=== PATIENT | female | born 1980 | race Caucasian/White ===

== ENCOUNTER 2020-07-19 16:07 | Outpatient (CLI) | payer OTHER, SELFPAY ==
--- NOTE | ~2020-07-19 | MM_ITS ---
EXAMINATION: MM screening [facility] BI w alise HISTORY: Screening mammogram TECHNIQUE: Craniocaudal and mediolateral oblique 3-D tomosynthesis images were obtained and synthetic 2-D images were generated. CAD analysis was submitted and interpreted. COMPARISON: 06/17/2019 BREAST PARENCHYMAL COMPOSITION: The breasts are almost entirely fatty. FINDINGS: There is no evidence of suspicious mass, calcification, or architectural distortion to sugg est malignancy in either breast. There has been no suspicious interval change. IMPRESSION: 1. No mammographic evidence of malignancy. 2. Recommend routine screening mammography in one year. BI-RADS Category 1: Negative Reviewed, dictated and finalized at location A. NALYST
== END 2020-07-19 16:08 | disposition home or self-care (01) ==
LOC: ANHIMG 16:10
PROVIDERS: PCP Obstetrics & Gynecology; Visit Provider Obstetrics & Gynecology
DX: Z12.31 Encounter for screening mammogram for malignant neoplasm of breast (principal)
CPT/HCPCS: 77063; 77067

== ENCOUNTER 2021-10-11 17:07 | Outpatient (CLI) | payer OTHER, SELFPAY ==
--- NOTE | ~2021-10-11 | MM_ITS ---
EXAMINATION: MM screening [facility] BI w alise HISTORY: Screening mammogram TECHNIQUE: Craniocaudal and mediolateral oblique 3-D tomosynthesis images were obtained and synthetic 2-D images were generated. CAD analysis was submitted and interpreted. COMPARISON: 07/19/2020, 06/17/2019 BREAST PARENCHYMAL COMPOSITION: There are scattered areas of fibroglandular density. FINDINGS: There is no evidence of suspicious mass, calcification, or architectural distortion to sugg est malignancy in either breast. There has been no suspicious interval change. IMPRESSION: 1. No mammographic evidence of malignancy. 2. Recommend routine screening mammography in one year. BI-RADS Category 1: Negative Reviewed, dictated and finalized at location A. MASTER
== END 2021-10-11 17:08 | disposition home or self-care (01) ==
LOC: ANHIMG 17:09
PROVIDERS: PCP Family Medicine; Visit Provider Obstetrics & Gynecology Gynecologic Oncology
DX: Z12.31 Encounter for screening mammogram for malignant neoplasm of breast (principal)
CPT/HCPCS: 77063; 77067

== ENCOUNTER 2022-10-22 15:44 | Outpatient (CLI) | payer OTHER, SELFPAY ==
--- NOTE | ~2022-10-22 | MM_ITS ---
EXAMINATION: MM screening [facility] BI w alise HISTORY: Screening mammogram TECHNIQUE: Craniocaudal and mediolateral oblique 3-D tomosynthesis images were obtained and synthetic 2-D images were generated. CAD analysis was submitted and interpreted. COMPARISON: October 11, 2021, July 19, 2020, June 17, 2019 bilateral screening mammogram exam inations BREAST PARENCHYMAL COMPOSITION: There are scattered areas of fibroglandular density. FINDINGS: There is no evidence of suspicious mass, calcification, or architectural distortion to sugg est malignancy in either breast. There has been no suspicious interval change. IMPRESSION: 1. No mammographic evidence of malignancy. 2. Recommend routine screening mammography in one year. BI-RADS Category 1: Negative Reviewed, dictated and finalized at location A. [facility] [place]
== END 2022-10-22 15:45 | disposition home or self-care (01) ==
PROVIDERS: PCP Family Medicine; Visit Provider Obstetrics & Gynecology Gynecologic Oncology
DX: Z12.31 Encounter for screening mammogram for malignant neoplasm of breast (principal)
CPT/HCPCS: 77063; 77067

== ENCOUNTER 2024-03-23 15:19 | Outpatient (CLI) | payer OTHER, SELFPAY ==
--- NOTE | ~2024-03-23 | MM_ITS ---
EXAMINATION: MM screening [facility] BI w alise HISTORY: Screening TECHNIQUE: Craniocaudal and mediolateral oblique 3-D tomosynthesis images were obtained and synthetic 2-D images were generated. CAD analysis was submitted and interpreted. COMPARISON: Comparison to multiple prior studies sequentially, with oldest reviewed study dated 06/01. BREAST PARENCHYMAL COMPOSITION: Not dense: There are scattered areas of fibroglandular density. FINDINGS: There is no evidence of suspicious mass, calcification, or architectural distortion to sugg est malignancy in either breast. There has been no suspicious interval change. IMPRESSION: 1. No mammographic evidence of malignancy. 2. Recommend routine screening mammography in one year. BI-RADS Category 1: Negative Reviewed, dictated and finalized at location B.
== END 2024-03-23 15:20 | disposition home or self-care (01) ==
PROVIDERS: Visit Provider Obstetrics & Gynecology Gynecologic Oncology
DX: Z12.31 Encounter for screening mammogram for malignant neoplasm of breast (principal)
CPT/HCPCS: 77063; 77067

== ENCOUNTER 2024-07-02 10:17 | Outpatient (CLI) | payer OTHER, SELFPAY ==
--- NOTE | 2024-07-02 10:27 | ECG_ITS ---
Test Date: 2024-07-02 10:39:21 Measurements Intervals [place] Rate: 58 P: 48 NM: 169 QRS: 59 QRSD: 92 T: 30 QT: 395 QTc: 389 Interpretive Statements SINUS BRADYCARDIA WITH SINUS ARRHYTHMIA BASELINE ARTIFACT- I, II, III BORDERLINE ECG No previous ECG available for comparison Electronically Signed On 07-02-2024 10:47:51 CDT by Antonio Brown D.O.
[2024-07-02 11:10] LABS: Hematocrit 40.4 % (37.0-47.0); Hemoglobin 13.8 g/dL (12.0-15.0)
== END 2024-07-02 10:18 | disposition home or self-care (01) ==
LOC: ANHSURGERY 10:21
PROVIDERS: Anesthesiology; PCP Nurse Practitioner; Visit Provider Surgery Plastic and Reconstructive Surgery
DX: L57.4 Cutis laxa senilis (principal); Z01.818 Encounter for other preprocedural examination
CPT/HCPCS: 36415; 85014; 85018; 93005

== ENCOUNTER 2024-07-06 01:15 | Day surgery (SDC) | payer OTHER, SELFPAY ==
--- NOTE | 2024-06-28 09:30 | SUR.PREOP ---
Report to the Outpatient Waiting Room, entrance under the green pavilion located off [facility], at time 0630 on date 07/06/24. Planned Procedure Time: 0830.? Time changes happen often and if your time is changed the preop area will call you the afternoon before. - You and your visitor will be asked to self-screen and do not enter if you have any COVID symptoms. Please call surgeon if you need to reschedule. - A mask is optional within the hospital at this time. Patients may have clear liquids (water, carbonated beverages, clear teas, apple juice) until 3 hours prior to surgery with a maximum of 20 ounces. - NO CLEAR LIQUIDS AFTER 0530 - No food from midnight until time of surgery and no smoking - Infants may have breast milk until 4 hours before surgery, formula 6 hours prior to surgery. - Children will be allowed to drink immediately following surgery.? If applicable, please bring a bottle or sippy cup to assist with drinking. Juice, water, soda, and popsicles are readily available.? For infants on formula, please bring formula the day of surgery.? Pacifiers are allowed. Take only the following medications with a SIP of water on the morning of surgery: N/A DO NOT STOP ANY OF YOUR OTHER PRESCRIPTION MEDICATIONS PRIOR TO SURGERY EXCEPT THE FOLLOWING Medications to discontinue per physician MULTIVITAMIN Date to take last dose 07/02/24 Please no make-up, nail guatemalan, hairspray, perfume, deodorant, or body powder the day of surgery.? No jewelry (including any body piercings) or valuables the day of surgery, leave them at home.? Please take a shower or bath the night before, or the morning of, surgery with an antibacterial soap.? Wear comfortable, loose fitting clothing.? Children are encouraged to wear pajamas. - Jewelry must be removed prior to entering the operating room.? Rings and piercings that are not removed may be cut off. - The hospital will not accept responsibility for valuables.? - Please leave all valuables, including medications, at home the day of surgery. If you are going home after surgery, a licensed septic pump truck driver must drive you home.? - NO public transportation without another adult if you receive anesthesia. - We recommend that an adult stay with you for 24 hours following discharge. - We also recommend that you do not drive, make important decision, drink alcoholic beverages, or take any drugs that were not prescribed by your health care provider for at least 24 hours after your discharge time. For Pediatric surgeries, we recommend two adults accompany the child home. Follow any additional instructions given to you from your surgeon. Telephone instructions given to MACRINA JONES and asked if any additional questions and then verbalized understanding. Patient advised to call surgeon office or pre surgery nurse liaison [phone] if any additional questions.
[2024-06-28 09:46] VITALS: BMI 26.0
[2024-07-06] VITALS (10 sets, daily range): BP systolic 100–119; BP diastolic 59–79; PULSE 64–105; RESP 12–20; TEMP 36.6–36.9; O2SAT 92–100
[2024-07-06 06:55] LABS: Urine Cotinine NEGATIVE
--- NOTE | 2024-07-06 07:01 | P.PNAN_ITS ---
Anes - Initial Pre Proc Eval Procedure: Operation Date: 07/06/24 08:30 Proposed Procedures p Abdominoplasty Anisha Luke with Liposuction - James Singh MD Date/Time: 07/06/24 07:01 Surgeon: James Singh MD Pre Op Diagnosis: skin laxity Patient Data Age: 44 Gender: F Height: 1.7 m Weight: 75.5 kg Allergies Allergy/AdvReac Type Severity Reaction Status Date / Time spironolactone Allergy Hives Verified 07/06/24 07:10 Home Medications Medication Instructions Recorded Confirmed Type cetirizine 10 mg tablet (Zyrtec) 10 mg PO DAILY 06/28/24 07/06/24 History [id number] 45 mg-folic 1 cap PO DAILY 06/28/24 07/06/24 History acid 800 mcg-vit K 120 mcg capsule (Bariatric Multivitamins) Laboratory Tests 07/06/24 06:40 Cotinine Negative Patient hx anesthesia problems: post op nausea/vomiting Family hx anesthesia problems: none Results Review: All pre-operative results and documents have been reviewed as part of the pre- operative evaluation. [facility] Past Medical History Medical History (Updated 07/05/24 @ 14:11 by Chemo Price DO) PONV (postoperative nausea and vomiting) Surgical History Surgical History (Updated 07/05/24 @ 14:11 by Chemo Price DO) History of sleeve gastrectomy Social History Social History Smoking status: Never smoker Alcohol intake: current Drinks per week: 4 Substance use: current Substance use type: marijuana Other substance usage details: ONCE A MONTH Living arrangements: with family Spiritual care concerns: No Anes - Eval Final PreProcedure Day of Procedure 07/06/24 07:01 Patient weight: overweight Heart: regular rate and rhythm Lungs: clear to auscultation Airway: Mallampati scale class II Neurological: alert and oriented Last oral intake: >/= 8 hours ASA classification: II Emergent: no Anesthetic plan: proceed Anesthesia type and monitoring: general ETT and standard monitoring Results Review: All pre-operative results and documents have been reviewed as part of the pre- operative evaluation. Informed Consent: The patient's anesthetic plan and its attendant risks and benefits were discussed with the patient/family/POA. Questions were solicited and answers provided to the satisfaction of the patient/family/POA.
--- NOTE | 2024-07-06 07:09 | WPDHPUPDATE1 ---
History and Physical Update Update Date/Time: 07/06/24 07:09 History and Physical has been reviewed, including an updated exam of the patient. There are NO changes in the patient's condition. Risks, benefits, and alternatives have been discussed and questions answered. Patient agrees to proceed with procedure.
--- NOTE | 2024-07-06 07:09 | W.PM.PROC2 ---
Procedure Note - Detailed Date of Procedure 07/06/24 Pre-op Diagnosis skin laxity Post-op Diagnosis Same Procedure Performed Anisha branham abdominoplasty with suction lipectomy Surgeon James Singh MD Anesthesia General Findings Tissue removed: 2,300 grams Lipoaspirate: 1,738 cc Description of Procedure They are here today for the above procedures. Previously and again today the risks, benefits, alternatives were discussed in extensive detail. I wanted them to be very realistic about the risks involved as well as expectations. We discussed aftercare and what to monitor for. I was very upfront about the risks of wound breakdown leading to loss of skin, open wounds, and need for additional procedures with permanent abdominal deformity. We discussed DVT/PE risks and management. She declines posterior body lift. Made sure answered all of their questions to their satisfaction today and consent was obtained. They were marked in the preoperative holding area with their verification. The patient was taken to the operating room. Anesthesia was provided by anesthesiology. A Pugh catheter was started. Posterior Placed prone on the operating room table with care taken to protect from injury. Prepped and draped in a standard sterile fashion. A surgical time-out was taken. Stab incisions were made and tumescent solution was infiltrated. Once adequate time was allowed for hemostasis a 5mm basket and 4mm Sintia cannula were utilized to complete suction lipectomy based on S.A.F.E. technique in multiple planes and passes. Suction lipectomy continued to result based on pre-operative planning, intra-operative observation, and rolling pinch test which were in full agreement. Abdomen Patient was then placed supine with care taken to protect from injury. I placed the patient in a flexed position to verify the upper and lower markings would reach. I then placed supine. A thorough abdominal examination was completed. Stab incisions were made and tumescent solution infiltrated. Stab incisions were made and tumescent solution was infiltrated. Once adequate time was allowed for hemostasis a 5mm basket and 4mm Sintia cannula were utilized to complete suction lipectomy based on S.A.F.E. technique in multiple planes and passes. Suction lipectomy continued to result based on pre-operative planning, intra-operative observation, and rolling pinch test which were in full agreement. A 10 blade was used to make the upper incision as well as the vertical. I continued dissection down to the level of fascia. Elevated just what was necessary for repair of the diastasis. I then again flexed the bed to verify the upper skin flap would reach the lower markings without tension. Once verified I placed her supine once again and a 10 blade used to make the lower incision. I elevated up to level the umbilicus and left the umbilicus intact on a well-vascularized stalk. The intervening tissue was removed. A 2 mm blunt cannula with 0.5% bupivacaine was injected deep to the fascia bilaterally. I plicated the diastasis recti using 0 PDO Stratafix barbed suture. This was in 2 separate layers using 2 separate sutures as well. After the patient was flexed (below) plicated the fascia with 0 PDO Stratafix in two separate layers. The patient was flexed and starting from superior to inferior began plication using 2-0 Vicryl to obliterate all space in a standard progressive tension fashion. At the umbilicus I marked out the location of the skin and inset this with 3-0 Monocryl and 4-0 Vicryl. I continued the remainder of the plication using 2-0 Vicryl until I reached my lower planned scar line. I trimmed any excess skin of the upper flap making sure this was a tension-free closure. 15 Ross drain was placed. I then approximated using a 3 point suture with 2-0 Vicryl followed by 2-0 PDO Stratafix, 3-0 Stratafix ,running subcuticular 4-0 Monocryl, and tissue glue. Fluffs and an abdominal binder were placed. The patient was transferred to the bed in a flexed position. [place] and taken to the PACU without difficulty. All instrument and sponge counts were correct at the end of the case. Estimated Blood Loss 100 Drains Yes (15 Ross) Packing No Pathology None sent Complications No immediate complications Condition Stable Disposition PACU
[2024-07-06 07:14] LABS: BEDSIDEPREGUCG Negative (Negative)
[2024-07-06] MEDS: SCOPOLAMINE 1 MG PATCH 1 PATCH TRANSDERM (07:15)
[2024-07-06] MEDS: LACTATED RINGERS 1,000 ML 30 ML IV CONT ×3 (07:20→14:30)
[2024-07-06] MEDS: ceFAZolin 2 GM/D5W 50 ML 2 GM/50 ML BAG IVPB (08:49)
[2024-07-06] MEDS: LACTATED RINGERS IRRIG 1,000 ML, LIDOCAINE HCL 1% LOCAL INJ 50 ML, EPINEPHrine HCL INJ ... INFILTRATE (08:49)
[2024-07-06] MEDS: BUPIVACAINE/EPINEPHRINE 0.5% 50 ML VIAL 60 ML INFILTRATE (08:49)
[2024-07-06] MEDS: TRANEXAMIC ACID 1,000MG/ISO100 1,000 MG/100 ML BAG 200 MG IVPB (09:04)
[2024-07-06] MEDS: ceFAZolin SODIUM 1 GM VIAL IV PUSH (12:38)
[2024-07-06] MEDS: fentaNYL CITRATE INJ (*CRX) 100 MCG/2 ML VIAL 25 MCG IV PUSH ×4 (14:23→14:40)
[2024-07-06] MEDS: oxyCODONE HCL (*CRX) 5 MG TAB IR PO (15:05)
== END 2024-07-06 15:55 | disposition home or self-care (01) ==
PROVIDERS: PCP Nurse Practitioner; Visit Provider Surgery Plastic and Reconstructive Surgery
PROC: (CPT 15830; principal; 2024-07-06 08:30)
DX: Z41.1 Encounter for cosmetic surgery (principal); L57.4 Cutis laxa senilis; F12.90 Cannabis use, unspecified, uncomplicated; Z98.890 Other specified postprocedural states; Z98.84 Bariatric surgery status
CPT/HCPCS: 15830; 15847; 15877; 80307; A9270; J0171; J0690; J1100; J1171; J2003; J2250; J2405; J2704; J3010; J7120

== ENCOUNTER 2025-05-13 09:26 | Outpatient (CLI) | payer OTHER, SELFPAY ==
--- OUTSIDE RECORDS SUMMARY | 2024-02-14 16:30 | XMS_ITS ---
Author Organization [facility] [place] ([address]) Address [address] [place] [address] Care Team Providers Care Proof Machine Operator Name Role Phone Rashid Sierra MD Primary Care Provider Unava Cordelia Perkins Unavailable [phone] [facility], Provider Unavailable Unavailab le Allergies Allergen (clinical drug ingredient) Drug/Non Drug Allergy documented on EMR Reaction Allergy Type Onset Date Status spironolactone Spironolactone hives Drug Allergy Active REASON FOR VISIT [facility] To [facility] Conversion Encounter Medications Medication SIG (Take, Route, Frequency, Duration) Notes Start Date End Date Status Nasacort Allergy 24HR 55 MCG/ACT 2 spray(s) intranasally once a day Active ELESTAT 0.05% 1 GTT IN EACH AFFECTED EYE 2 TIMES A DAY *Please review for potential replacement for e-prescription and drug interaction check* Active ZANTAC 150 150 MG 1 TAB(S) ORALLY 2 TIMES A DAY *Please review for potential replacement for e-prescription and drug interaction check* Not-Taking ZyrTEC Allergy 10 MG 1 tab(s) orally BID Active Encounters Encounter Location [place] [id number] 02/14/2024 Provider [facility] Allergic rhinitis due to pollen J30.1 ; Other chronic allergic conjunctivitis H10.45 and Pruritus, unspecified L29.9 Assessments Encounter Date Diagnosis (ICD Code) Assessment Notes Treatment Notes Treatment Clinical Notes Section Notes 02/14/2024 Allergic rhinitis due to pollen (ICD-10 - J30.1) 02/14/2024 Other chronic allergic conjunctivitis (ICD-10 - H10.45) 02/14/2024 Pruritus, unspecified (ICD-10 - L29.9) Plan Of Treatment Medication Medication Name Sig Start Date Stop Date Notes Nasacort Allergy 24HR 55 MCG/ACT 2 spray(s) intranasally once a day ELESTAT 0.05% 1 GTT IN EACH AFFECT ED EYE 2 TIMES A DAY *Please review for potential replacement for e-prescription and drug interaction check* ZyrTEC Allergy 10 MG 1 tab(s) orally BID Progress Notes * Josie JONES RDOB: [birth year] (44 yo F)Acc No.[id number]:02/14/2024 Patient: Josie BRAVO Provider: Marilee Acosta :1980 A ge:43 Y S ex:Female Date:02/14/2024 Address:[address] [place] [address] [id number] Pcp:Rashid Sierra MD Subjective: * Chief Complaints: * 1 . [facility] To Med[facility]pan Conversion Encounter. * Medical History: * Medications: N ot-Taking/PRN ZANTAC 150 150 MG TABLET 1 TAB(S) ORALLY 2 TIMES A DAY , Notes to Pharmacist: *Please review for potential replacement for e-prescription and drug interaction check* * Allergies: S pironolactone: hives. Objective: * Vitals: Assessment: * Assessment: 1. A llergic rhinitis due to pollen - J30.1 (Primary) 2 . O ther chronic allergic conjunctivitis - H10.45 3 . P ruritus, unspecified - L29.9 ? Plan: * Treatment: 2. O ther chronic allergic conjunctivitis Continue ELESTAT SOLUTION, 0.05%, 1 GTT, IN EACH AFFECTED EYE, 2 TIMES A DAY, Notes to Pharmacist: *Please review for potential replacement for e-prescription and drug interaction check*. 3. P ruritus, unspecified Hold ZyrTEC Allergy Tablet, 10 MG, 1 tab(s), orally, BID. * Billing Information: * Visit Code: * Procedure Codes: * Electronic signature of [facility] on 05/13/2025 at 09:56 AM CDT Sign off status: Pending * Provider: Marilee brewster Migration Date: 0 02/14/2024 Generated for Flakita goldsmith/Jose M/Nelly on: 0 05/13/2025 09:56 AM CDT
--- NOTE | ~2025-05-13 | MM_ITS ---
EXAMINATION: MM screening dontrell BI w alise HISTORY: Screening TECHNIQUE: Craniocaudal and mediolateral oblique 3-D tomosynthesis images were obtained and synthetic 2-D images were generated. CAD analysis was submitted and interpreted. COMPARISON: Comparison to multiple prior studies sequentially, with oldest reviewed study dated , 06/17/2019 BREAST PARENCHYMAL COMPOSITION: There are scattered areas of fibroglandular density. FINDINGS: There is no evidence of suspicious mass, calcification, or architectural distortion to suggest malignancy in either breast. IMPRESSION: 1. No mammographic evidence of malignancy. 2. Recommend routine screening mammography in one year. BI-RADS Category 1: Negative Reviewed, dictated and finalized at location B.
--- OUTSIDE RECORDS SUMMARY | 2025-05-13 09:55 | XMS_ITS | Encounter Summary ---
Author Organization [facility] Health Address [address] [facility] [place] [address] Care Team Providers Care Correctional Nurse Name Role Phone Unavailable Primary Care Provider Unavailabl e Encounter Details Date Type Department Care Team (Late st Contact Info) Description 06/07/2024 Lab Requisition [facility] - DermPath Lab [address] [place] [id number] Rocio Martínez PA-C [address] [place] [phone] Neoplasm of uncertain behavior of skin Social History Tobacco Use Types Packs/Day Years Used Date Smoking Tobacco: Never Assessed Comments Unknown Sex and Gender Information Value Date Recorded Sex Assigned at Not on file Legal Sex Female 3:47 PM CDT Gender Identity Not on file Sexual Orientation Not on file documented as of this encounter Plan of Treatment Not on file documented as of this encounter Procedures Procedure Name Priority Date/Time Associated Diagnosis Comments DERMATOPATHOLOGY Routine 06/07/2024 12:0 0 AM CDT Neoplasm of uncertain behavior of skin documented in this encounter Results * DERMATOPATHOLOGY (06/07/2024 12:00 AM CDT) Case Report Dermatopathology Report Case: [id number] Authorizing Provider: Rocio Martínez PA-C Collected: 06/07/2024 12:00 AM Ordering Location: [facility] - Received: 06/08/2024 12:48 PM DermPath Lab Pathologist: Hawa Rodas MD Specimen: Skin, right breast 4:46 PM CDT DERMATOPATHOLOGY LABORATORY Final Diagnosis Specimen A. SKIN, right breast: COMPOUND MELANOCYTIC NEVUS, IRRITATED (D22.5) POST-INFLAMMATORY PIGMENT ALTERATION (L81.9) PRESENT AT MARGIN (see microscopic description and comment) 4:46 PM CDT DERMATOPATHOLOGY LABORATORY at 1646 CDT Clinical History Atypical nevus 4:46 PM CDT DERMATOPATHOLOGY LABORATORY Gross Description Specimen A: Received is one formalin filled container labeled with the patient's name and designated right breast. The specimen consists of a shave biopsy measuring 5x4x1 mm. Jar 0. 4:46 PM CDT DERMATOPATHOLOGY LABORATORY Microscopic Description Specimen A. SKIN, right breast: There is melanin pigment in the stratum corneum. There are nests of melanocytes at the dermal-epidermal junction and within the dermis as well as abundant melanin within melanophages around the superficial vascular plexus. This lesion is present at the margin of the specimen. COMMENT: The histopathologic findings of the portion of the lesion sampled are reassuring. However, as this lesion is present at the margins of the specimen, clinicopathological correlation is recommended as to the nature of any remaining lesion. 4:46 PM CDT DERMATOPATHOLOGY LABORATORY Disclaimer An external and internal positive and negative controls are appropriate for the histochemical, immunohistochemical and immunofluorescence stain(s) in this case (if any), except where stated explicitly. The performance characteristics of the stain(s) cited in this report were developed and its performance characteristic determined by the Dermatopathology Laboratory at [facility], directed by Dr. Fela Ivory. These tests need not be, and therefore are not, approved by the [place] Food and Drug Administration. The tests are used for clinical purposes. Billing Codes Specimen Charges Stain Charges 61416 1 4:46 PM CDT DERMATOPATHOLOGY LABORATORY Embedded Images 4:46 PM CDT DERMATOPATHOLOGY LABORATORY Pathology/Cytolog y TISSUE SPECIMEN FROM SKIN / Unknown 06/07/2024 06/08/2024 12:48 PM CDT Rocio Martínez PA-C LAB - PATHOLOGY/CYTOLOGY ORDE RABLES Final Result DERMATOPATHOLOGY LABORATORY [facility] - Department of Dermatology [facility] [address] [place] [address], [address] [phone] documented in this encounter Visit Diagnoses Diagnosis Neoplasm of uncertain behavior of skin documented in this encounter
--- OUTSIDE RECORDS SUMMARY | 2025-05-13 09:55 | XMS_ITS | Encounter Summary ---
Author Organization [facility] Health Address [address] [facility] [place] [address] Care Team Providers Care Gamma Ray Operator Name Role Phone Unavailable Primary Care Provider Sarahabl e Encounter Details Date Type Department Care Team (Late st Contact Info) Description 06/08/[address] [facility] DermPath Lab [address] [place] [address] Thompson Palmer MD [address] [address] Social History Tobacco Use Types Packs/Day Years [...] Priority Date/Time Associated Diagnosis Comments DERMATOPATHOLOGY Routine 06/06/2021 12:0 0 AM CDT documented in this encounter Results * DERMATOPATHOLOGY (06/06/2021 12:00 AM CDT) Case Report Dermatopathology Report Case: [id number] Authorizing Provider: Thompson Palmer MD Collected: 06/06/2021 12:00 AM Ordering Location: [facility] DermPath Lab Received: 06/08/2021 08:07 AM Pathologist: Yuridia Ojeda MD Specimens: A) - Skin, left lateral scalp B) - Skin, left posterior scalp 1:31 PM CDT DERMATOPATHOLOGY LABORATORY Final Diagnosis Specimen A. SKIN, left lateral scalp: TRICHILEMMAL (PILAR) CYST WITH CALCIFICATION (L72.12) PRESENT AT MARGIN Specimen B. SKIN, left posterior scalp: TRICHILEMMAL (PILAR) CYST WITH CALCIFICATION (L72.12) PRESENT AT MARGIN 1:31 PM T DERMATOPATHOLOGY LABORATORY at 1331 CDT Clinical History A: Pilar cyst. Path# [id number]. Check margins. B: Pilar cyst. Path# [id number]. Check margins. 1:31 PM CDT DERMATOPATHOLOGY LABORATORY Gross Description Specimen A: Received is one formalin filled container labeled with the patient's name and designated left lateral scalp. The specimen consists of a [id number] bisected, 2j7r4rs. Jar 0. Specimen B: Received is one formalin filled container labeled with the patient's name and designated left posterior scalp. The specimen consists of a [id number], bisected. The margin is inked green. Jar 0. 1:31 PM CDT DERMATOPATHOLOGY LABORATORY Microscopic Description Specimen A. SKIN, left lateral scalp: Sections show a cyst that is lined by stratified squamous epithelium that shows trichilemmal keratinization (no granular layer). There is homogeneous pink keratin and aggregates of homogenous amorphous basophilic material consistent with calcium within the cyst. This lesion is present at the margin of the specimen. Specimen B. SKIN, left posterior scalp: Sections show a cyst that is lined by stratified squamous epithelium that shows trichilemmal keratinization (no granular layer). There is homogeneous pink keratin and aggregates of homogenous amorphous basophilic material consistent with calcium within the cyst. This lesion is present at the margin of the specimen. 1:31 PM CDT DERMATOPATHOLOGY LABORATORY Disclaimer An external and internal positive and negative controls are appropriate for the histochemical, immunohistochemical and immunofluorescence stain(s) in this case (if any), except where stated explicitly. The performance characteristics of the stain(s) cited in this report were developed and its performance characteristic determined by the Dermatopathology Laboratory at [facility], directed by Dr. Fela Ivory. These tests need not be, and therefore are not, approved by the [place] Food and Drug Administration. The tests are used for clinical purposes. Billing Codes Specimen Charges Stain Charges 67332 75680 1 1 1:31 PM CDT DERMATOPATHOLOGY LABORATORY Embedded Images 1:31 PM CDT DERMATOPATHOLOGY LABORATORY Pathology/Cytology TISSUE SPECIMEN FROM SKIN / Unknown 06/06/2021 06/08/2021 8:07 AM CDT Miscellaneous samples (specimen) TISSUE SPECIMEN FROM SKIN / Unknown 06/06/2021 06/08/2021 8:07 AM CDT us Thompson Palmer MD LAB - PATHOLOGY/CYTOLOGY ORDER CRYSTAL Final Result DERMATOPATHOLOGY LABORATORY [facility] - Department of Dermatology [facility] Medicine [address] [place] [address], [address] [phone] documented in this encounter Visit Diagnoses Not on filedocumented in this encounter
--- OUTSIDE RECORDS SUMMARY | 2025-05-13 09:55 | XMS_ITS | Clinical Summary ---
Author Organization [facility] Address [address] [place] [address] Care Team Providers Care Graining Press Operator Name Role Phone Unavailable Primary Care Provider Unavailabl e Source Comments [facility],non-owned Affiliates and Associated Physician Practices is amultiple site organization consisting of ambulatory clinics and hospital sitesin [place], [place], [place] and [place]. This disclosure is being madepursuant to the Care Everywhere program and may not contain all information available regarding this patient. Last updated 18.[facility] Social History Tobacco Use Types Packs/Day Years Used Date Smoking Tobacco: Never Assessed Comments Unknown Sex and Gender Information Value Date Recorded Sex Assigned at Not on file Legal Sex Female 3:47 PM CDT Gender Identity Not on file Sexual Orientation Not on file Plan of Treatment Health Maintenance Due Date Last Done Comments COLOGUARD (AGES 45-75) - COL ON CA SCREENING 1979 COLON MONITORING 1979 COLONOSCOPY - COLON CA SCREENING 1979 CT COLONOGRAPHY - COLON CA SCREENING 1979 Colorectal Cancer Screening 1979 FIT - COLON CA SCREENING 1979 FLEX SIG - COLON CA SCREENING 1979 LIPID TESTING 1979 MAMMOGRAM 1979 HIV SCREENING 1994 HEPATITIS C SCREENING 06/10/1997 DTAP/TDAP/TD VACCINES (1 - Tdap) 1998 HEPATITIS B VACCINE (1 of 3 - 19+ 3-dose series) 1998 PAP SMEAR 2000 HPV VACCINE (1 - 3-dose SCDM series) 2006 COVID-19 VACCINE (2023-2 5 season) 2024 DEPRESSION SCREENING 09/01/2024 INFLUENZA VACCINE (#1) 2025 ZOSTER VACCINE (1 of 2) 2029 HIB VACCINE Aged Out No longer eligi ble based on patient's age to complete this topic MENINGOCOCCAL (Group B) VACC INE SHARED DECISION-MAKING Aged Out No longer eligibl e based on patient's age to complete this topic MENINGOCOCCAL GROUPS A/C/Y/W VACCINE Aged Out No longer eligible b ased on patient's age to complete this topic PNEUMOCOCCAL VACCINE Aged Out No long er eligible based on patient's age to complete this topic Insurance [employer] Member Subscriber Plan / Payer ( fective 2021-Present) Name:Rocio Eubanks Member ID:[id number] Relation to Subscriber:Self Name:Rocio Eubanks Subscriber ID:[id number] Payer ID:Not on file Type:O Address: [place] [id number] [employer] Member Subscriber Plan / Payer ( fective 2021-Present) Name:Rocio Eubanks Member ID:[id number] Relation to Subscriber:Self Name:Rocio Eubanks Subscriber ID:[id number] Payer ID:Not on file Type:HMO Address: [place] [phone]
--- OUTSIDE RECORDS SUMMARY | 2025-05-13 09:55 | XMS_ITS | Encounter Summary ---
Author Organization [facility] Health Address [address] [facility] [place] [address] Care Team Providers Care Administrative Representative Name Role Phone Unavailable Primary Care Provider Unavailabl e Encounter Details Date Type Department Care Team (Late st Contact Info) Description 12/21/2021 Lab Requisition [facility] DermPath Lab [address] [facility] [place] [address] Thompson Palmer MD [address] [place] [place] [address] Social History Tobacco Use Types Packs/Day [...] Priority Date/Time Associated Diagnosis Comments DERMATOPATHOLOGY Routine 12/21/2021 12:0 0 AM CDT documented in this encounter Results * DERMATOPATHOLOGY (12/21/2021 12:00 AM CDT) Case Report Dermatopathology Report Case: [id number] Authorizing Provider: Thompson Palmer MD Collected: 12/21/2021 12:00 AM Ordering Location: [facility] DermPath Lab Received: 12/21/2021 02:58 PM Pathologist: Susan Rodas MD Specimen: Skin, right upper back 3:57 PM CDT DERMATOPATHOLOGY LABORATORY Final Diagnosis Specimen A. SKIN, right upper back: LICHEN PLANUS-LIKE KERATOSIS (BENIGN LICHENOID KERATOSIS) (L82.1) (see microscopic description) 2 3:57 PM CDT DERMATOPATHOLOGY LABORATORY at 1557 CDT Clinical History Irritated Nevus vs. Other. Path# [id number] 2 3:57 PM CDT DERMATOPATHOLOGY LABORATORY Gross Description Specimen A: Received is one formalin filled container labeled with the patient's name and designated right upper back. The specimen consists of a shave biopsy measuring 3m4g2rl. Jar 0. 2 3:57 PM CDT DERMATOPATHOLOGY LABORATORY Microscopic Description Specimen A. SKIN, right upper back: The epidermis is mildly acanthotic. There is a lichenoid infiltrate with vacuolar changes of basilar keratinocytes and scattered necrotic keratinocytes. Additional deeper sections were obtained and reviewed. 2 3:57 PM CDT DERMATOPATHOLOGY LABORATORY Disclaimer An external and internal positive and negative controls are appropriate for the histochemical, immunohistochemical and immunofluorescence stain(s) in this case (if any), except where stated explicitly. The performance characteristics of the stain(s) cited in this report were developed and its performance characteristic determined by the Dermatopathology Laboratory at [facility], directed by Dr. Fela Ivory. These tests need not be, and therefore are not, approved by the [place] Food and Drug Administration. The tests are used for clinical purposes. Billing Codes Specimen Charges Stain Charges 64476 1 2 3:57 PM CDT DERMATOPATHOLOGY LABORATORY Embedded Images 2 3:57 PM CDT DERMATOPATHOLOGY LABORATORY Pathology/Cytolog y TISSUE SPECIMEN FROM SKIN / Unknown 12/21/2021 12/21/2021 2:58 PM CDT us Thompson Palmer MD LAB - PATHOLOGY/CYTOLOGY ORDER CRYSTAL Final Result DERMATOPATHOLOGY LABORATORY [facility] - Department of Dermatology [address], [address] [place] [address], [facility] [phone] documented in this encounter Visit Diagnoses Not on filedocumented in this encounter
--- OUTSIDE RECORDS SUMMARY | 2025-05-13 09:55 | XMS_ITS | Encounter Summary ---
Author Organization [facility] Health Address [address] [place] [address] Care Team Providers Care Administrative Manager Name Role Phone Unavailable Primary Care Provider Unavailabl e Encounter Details Date Type Department Care Team (Late st Contact Info) Description 12/05/2022 Lab Requisition [facility] DermPath Lab [address] [facility], [place] [address] Thompson Palmer MD [address] [facility] [address] Social History Tobacco Use Types Packs/Day [...] Priority Date/Time Associated Diagnosis Comments DERMATOPATHOLOGY Routine 12/04/2022 12:0 0 AM CDT documented in this encounter Results * DERMATOPATHOLOGY (12/04/2022 12:00 AM CDT) Case Report Dermatopathology Report Case: [id number] Authorizing Provider: Thompson Palmer MD Collected: 12/04/2022 12:00 AM Ordering Location: [facility] DermPath Lab Received: 12/05/2022 03:39 PM Pathologist: Yuridia Ojeda MD Specimen: Skin, left anterior scalp 3 1:38 PM CDT DERMATOPATHOLOGY LABORATORY Final Diagnosis Specimen A. SKIN, left anterior scalp: TRICHILEMMAL (PILAR) CYST WITH CALCIFICATION (L72.12) PRESENT AT MARGIN 3 1:38 PM CDT DERMATOPATHOLOGY LABORATORY at 1338 CDT Clinical History Pilar cyst Path#[id number] Check margins 1:38 PM CDT DERMATOPATHOLOGY LABORATORY Gross Description Specimen A: Received is one formalin filled container labeled with the patient's name and designated left anterior scalp. The specimen consists of a 22g15i02 mm piece of skin. The margin is inked green. The specimen is bisected lengthwise and submitted in 1 cassette. Jar 0+. 1:38 PM CDT DERMATOPATHOLOGY LABORATORY Microscopic Description Specimen A. SKIN, left anterior scalp: Sections show a cyst that is lined by stratified squamous epithelium that shows trichilemmal keratinization (no granular layer). There is homogeneous pink keratin and aggregates of homogenous amorphous basophilic material consistent with calcium within the cyst. This lesion is present at the margin of the specimen. 3 1:38 PM CDT DERMATOPATHOLOGY LABORATORY Disclaimer An external and internal positive and negative controls are appropriate for the histochemical, immunohistochemical and immunofluorescence stain(s) in this case (if any), except where stated explicitly. The performance characteristics of the stain(s) cited in this report were developed and its performance characteristic determined by the Dermatopathology Laboratory at [facility], directed by Dr. Fela Ivory. These tests need not be, and therefore are not, approved by the [place] Food and Drug Administration. The tests are used for clinical purposes. Billing Codes Specimen Charges Stain Charges 74082 1 3 1:38 PM CDT DERMATOPATHOLOGY LABORATORY Embedded Images 3 1:38 PM CDT DERMATOPATHOLOGY LABORATORY Pathology/Cytolog y TISSUE SPECIMEN FROM SKIN / Unknown 12/04/2022 12/05/2022 3:39 PM CDT us Thompson Palmer MD LAB - PATHOLOGY/CYTOLOGY ORDER CRYSTAL Final Result DERMATOPATHOLOGY LABORATORY [facility] - Department of Dermatology [address] Floor [place], [place] [address] [place] [address] documented in this encounter Visit Diagnoses Not on filedocumented in this encounter
--- OUTSIDE RECORDS SUMMARY | 2025-05-13 09:55 | XMS_ITS | Patient Health Record ---
Author Organization [facility] [employer] [facility] ([address]) Address [address] [place] [address] Care Team Providers Care Machine Operators Name Role Phone Rashid Sierra MD Primary Care Provider Unava Cordelia Perkins Unavailable [phone] Allergies Allergen (clinical drug ingredient) Drug/Non Drug Allergy documented on EMR Reaction Allergy Type Onset Date Status spironolactone Spironolactone hives Drug Allergy Active Reason For Referral No Information Medications Medication SIG (Take, Route, Frequency, Duration) Notes Start Date End Date Status ZYRTEC 10 mg 1 tab(s) orally BID Active Nasacort Allergy 24HR 55 MCG/ACT 2 spray(s) intranasally once a day Active ELESTAT 0.05% 1 GTT IN EACH AFFECTED EYE 2 TIMES A DAY *Please review for potential replacement for e-prescription and drug interaction check* Active NASACORT AQ 55 mcg/inh 2 spray(s) intranasally once a day Active ZANTAC 150 150 MG 1 TAB(S) ORALLY 2 TIMES A DAY *Please review for potential replacement for e-prescription and drug interaction check* Not-Taking ZyrTEC Allergy 10 MG 1 tab(s) orally BID Active Immunizations Vaccine Route Administration Date Status Comme nts Influenza Unknown 06/01/2010 Administered Social History Tobacco Use: Social History Observation Description Date Details (start date - stop date) Former Smoker NA - NA Smoking Smart Form: Question Answer Notes Are you a: former smoker How long it has been since you last smoked? > 10 years Problems Problem Type SNOMED Code ICD Code Onset Dates Problem Status W/U Status Risk Notes Problem Chronic allergic conjunctivitis (45819924) Chronic allergic conjunctivitis NOS (372.14) Active confirmed Problem Allergic rhinitis due to allergen (25127938) Allergic rhinitis due to allergen (477.8) Active confirmed Problem Pruritic disorders (474475327) Pruritus of skin NOS (698.9) Active confirmed Problem Pruritus (384405202) Pruritus, unspecified (L29.9) Active confirmed Problem Allergic rhinitis caused by pollen (disorder) (58515596) Allergic rhinitis due to pollen (J30.1) Active confirmed Problem Allergic rhinitis caused by animal hair and dander (242681986615312) Allergic rhinitis due to animal (cat) (dog) hair and dander (J30.81) Active confirmed Problem Allergic rhinitis (93413137) Other allergic rhinitis (J30.89) Active confirmed Problem Chronic allergic conjunctivitis (42562262) Other chronic allergic conjunctivitis (H10.45) Active confirmed Plan Of Treatment No Information Insurance Providers Payer Name Payer Address Payer Phone Subscriber Number Group Number Insured Name Patient Relationship to Insured Coverage Start Date Coverage End Date [facility] [address] [place] [address] [id number] Josie Eubanks Self - patient is the insured
--- OUTSIDE RECORDS SUMMARY | 2025-05-13 09:56 | XMS_ITS | Patient Health Record ---
Author Organization [facility] Address [address] [place], [place] [id number] Care Team Providers Care Seismic Prospecting Observer Helper Name Role Phone DENISHA Colin Unavailable [phone] Rashid Sierra Unavailable Unavailable Reason For Referral No Information Medications Medication SIG (Take, Route, Frequency, Duration) Notes Start Date End Date Status triamcinolone acetonide 0.055 MG/ACTUAT Metered Dose Nasal [place] [Nasacort] triamcinolone acetonide 0.055 MG/ACTUAT Metered Dose Nasal [place] [Nasacort]Original Medicationtriamcinolone acetonide 0.055 MG/ACTUAT Metered Dose Nasal [place] [Nasacort] *Reorder from OnDeck for eRx and Inter 4 Active cetirizine hydrochloride 10 MG Oral Capsule [Zyrtec] ORAL cetirizine hydrochloride 10 MG Oral Capsule [Zyrtec]Original Medicationcetirizine hydrochloride 10 MG Oral Capsule [Zyrtec] *Reorder from OnDeck for eRx and Interaction Alerts* 4 Active Plan Of Treatment No Information Insurance Providers Payer Name Payer Address Payer Phone Subscriber Number Group Number Insured Name Patient Relationship to Insured Coverage Start Date [facility]age End Date [facility] [address] [place], [place] [id number] MACRINA JONES Self - patient is the insured
--- OUTSIDE RECORDS SUMMARY | 2025-05-13 09:56 | XMS_ITS | Clinical Summary ---
Author Organization [facility] Address [address] [place] [address] Care Team Providers Care Segment Producer Name Role Phone Lorrie López MD Primary Care Provider [phone] Allergies Active Allergy Reactions Criticality Noted Date Comments Nsaids (Non-Steroidal Anti-Inflammatory Drug) Other (See comments) Low 06/25/2023 S/p bariatric surgery Spironolactone Hives,Itching,Rash Medium 05/17/2021 Medications cetirizine (ZyrTEC) 10 mg capsuleIndicati ons:Allergic Rhinitis Take 10 mg by mouth every morning 5 Active multivitamin-mi i-uiru-FI-vit K (Bariatric Multivitamins) 45 mg iron- 800 mcg-120 mcg capsule 1 capsule 2 Active tirzepatide, weight loss, (Zepbound) 5 mg/0.5 mL pen injectorIndicat ions:Weight Loss Management for Obese Patient (BMI >= 30) Inject 0.5 mL (5 mg total) under the skin every 7 days 2 mL 3 5 Active FLUoxetine (PROzac) 20 mg capsuleIndicati ons:depression Take 20 mg by mouth every morning 1 04/14/20 25 Discontinu ed(Patient Reported) Active Problems Problem Noted Date Diagnosed Date Allergic rhinitis 07/02/2023 Pruritus 07/02/2023 Status post bariatric surgery 04/30/2022 Skin neoplasm 11/24/2017 Encounters Date Type Department Care Team Description 04/14/2025 11:00 AM CDT Telemedicine [facility] Medicine Minimally Invasive Surgery [address] Medical Office [address] [place] [address] Brenda Gutiérrez NP Weight loss counseling, encounter for (Primary Dx); H/O gastric sleeve; BMI 24.0-24.9, adult 03/17/2025 4:00 PM CDT Telemedicine [facility] Minimally Invasive Surgery [address] [place] [address] [address] [place] [address] Brenda Gutiérrez NP BMI 24.0-24.9, adult (Primary Dx); Encounter for weight management 02/10/2025 11:00 AM CDT Telemedicine [facility] Invasive Surgery [address] [place] [address] [address] [place] [phone] Brenda Gutiérrez NP BMI 25.0-25.9,adult (Primary Dx); Weight loss counseling, encounter for; BMI 30.0-30.9,adult from Last 3 Months Surgical History Surgery Date Site/Laterality Comments UPPER GASTROINTESTINAL ENDOSCOPY Medical History Medical History Date Comments Low back pain 1998 Anxiety and depression PONV (postoperative nausea and vomiting) Obesity Family History Medical History Relation Name Comments Depression Daughter Paulina Mental illness Daughter Paulina Hypertension Father Carter Cancer Maternal Grandfather Rad Alcohol abuse Maternal Grandmother Iraida Mental illness Maternal Grandmother Iraida Miscarriages / Stillbirths Maternal Grandmother Iraida Asthma Mother Sofía Sleep apnea Mother Sofía Cancer Mother's Brother Randy Depression Sister Mckenna Mental illness Sister Mckenna Miscarriages / Stillbirths Sister Mckenna Learning disabilities Son Lamine Anesthesia problems Neg Hx Relation Name Status Comments Daughter Paulina Father Carter Maternal Grandfather Rad Maternal Grandmother Iraida Mother Sofía Mother's Brother Randy Sister Mckenna Son Lamine Social History Tobacco Use Types Packs/Day Years Used Date Smoking Tobacco: Never Smokeless Tobacco: Never Tobacco Cessation:Counseling Given: Not Answered AUDIT-C Answer Date Recorded Q1: How often do you have a drink containing alc ohol? 2-3 times a week 11/11/2023 Q2: How many drinks containi ng alcohol do you have on a typical day when you are drinking? 3 or 4 11/11/2023 Q3: How often do you have si x or more drinks on one occasion? Never 11/11/2023 Comments No Sex and Gender Information Value Date Recorded Sex Assigned at Not on file Legal Sex Female 11:01 AM CLOTH NEUTRALIZER Gender Identity Female 05/01/2021 1:27 PM CDT Sexual Orientation Not on file Obstetrics History Last Filed Vital Signs Vital Sign Reading Time Taken Comments Blood Pressure 117/70 11/11/2023 9:17 AM CDT Pulse 63 11/11/2023 9:17 AM CDT Temperature 36.6 C (97.8 F) 11/11/2023 9:17 AM CDT Respiratory Rate 16 11/01/2021 11:30 AM CLOTH NEUTRALIZER Oxygen Saturation 100% 11/11/2023 9:17 AM CDT Inhaled Oxygen Concentration - - Weight 75.1 kg (165 lb 9.6 oz) 11/11/2023 9:17 A M CDT Height 167.6 cm (5' 6) 11/11/2023 9:17 AM CDT Body Mass Index 26.73 11/11/2023 9:17 AM CDT Plan of Treatment Health Maintenance Due Date Last Done Comments Breast Cancer Screening-Mammogram 1979 Cervical Cancer Screening 1979 Colon Cancer Screening-Colonoscopy 1979 Depression Screening 1979 Hepatitis C Screening 1979 DTaP/Tdap/Td Vaccine (1 - Tdap) 1990 Hepatitis B Screening 1997 Regular Well Visit/Exam 18-64 1997 HPV Vaccines (1 - 3-dose SCD M series) 2006 Covid-19 Vaccine (3 - 2024-2 6 season) 2025 07/31/2021, 11/03/2020 Influenza Vaccine (#1) 2025 06/01/2010 Pneumococcal vaccine <65 Aged Out No longer eligible based on patient's age to complete this topic Insurance [facility] [id number] [employer] OPEN ACCESS [facility] [id number] Advance Directives For more information, please contact: [phone] * Full Code (Latest Code Status on File) Date Activated Date Inactivated Comments 10/31/2021 12:37 PM 11/01/2021 6:03 PM Care Teams Segment Producer Relationship Specialty Start Date End Date Lorrie López MD PCP - General Nurse Practitioner 11/11/23
== END 2025-05-13 09:27 | disposition home or self-care (01) ==
LOC: ANHFOHIMG 09:28
PROVIDERS: PCP Nurse Practitioner; Visit Provider Nurse Practitioner Women's Health
DX: Z12.31 Encounter for screening mammogram for malignant neoplasm of breast (principal)
CPT/HCPCS: 77063; 77067